=== PATIENT | male | born 1990 | race Caucasian/White ===

== ENCOUNTER 2020-01-14 18:49 | Emergency (ER) | payer MEDICARE, MEDICAID ==
[~2020-01-14] VITALS: Ht 185.4 cm; Wt 113.6 kg
[2020-01-14] MEDS ORDERED: BUSP5TAB20 PO (18:53)
[2020-01-14] MEDS ORDERED: MIRT-89 PO (18:53)
[2020-01-14 22:11] VITALS: BP 133/79
[2020-01-14 22:11] LABS: COVID AG,FIA SOURCE NASAL SWAB
== END 2020-01-14 22:12 | disposition home or self-care (01) ==
LOC: EMS 18:49
DX: R05 Cough (principal); F17.210 Nicotine dependence, cigarettes, uncomplicated; Z71.6 Tobacco abuse counseling; Z20.828 Contact with and (suspected) exposure to other viral communicable diseases
CPT/HCPCS: 71046; 87426; 99284; 99406; C9803

== ENCOUNTER 2020-05-04 21:28 | Inpatient (IN) | payer MEDICARE, MEDICAID ==
[~2020-05-04] VITALS: Ht 185.4 cm; Wt 107.7 kg
[~2020-05-04 21:28] MED LIST: BUSP5TAB20 PO; MIRT-89 PO
[2020-05-04] MEDS ORDERED: OLANZapine 5 MG RAPDIS TABLET PO PRN (23:00)
[2020-05-04] MEDS ORDERED: ZOLPIDEM TARTRATE 10 MG TABLET PO PRN (23:00)
[2020-05-05] VITALS: BP 141/97
[2020-05-05] MEDS ORDERED: INFLUENZA VIRUS VACCINE QVS 2020-21 (6MO+)/PF 60 MCG/0.5 ML SYRINGE IM ONE (01:00)
[2020-05-05 08:03] LABS: HEMOGLOBIN A1C 4.9 % (3.8-5.6)
[2020-05-05 08:05] VITALS: BP 125/71
[2020-05-05 08:12] LABS: BASOPHILS % (AUTO) 0.7 % (0.0-2.0); EOSINOPHILS % (AUTO) 3.6 % (1.0-6.0); HEMATOCRIT 41.8 % (41-53); HEMOGLOBIN 14.4 g/dL (13.5-17.5); LYMPHOCYTES # (AUTO) 1.9 K/uL (1.0-4.8); LYMPHOCYTES % (AUTO) 21.9 % (22.0-44.0); MEAN CORPUSCULAR HEMOGLOBIN 30.6 pg (26.0-34.0); MEAN CORPUSCULAR HGB CONC 34.4 G/dL (31.0-37.0); MEAN CORPUSCULAR VOLUME 89 fL (80-100); MONOCYTES # (AUTO) 0.7 K/uL (0.1-1.0); NEUTROPHILS # (AUTO) 5.8 K/uL (1.8-7.7); NEUTROPHILS % (AUTO) 65.8 % (40.0-70.0); PLATELET COUNT (AUTO) 243 K/uL (150-450); RED CELL DISTRIBUTION WIDTH 13.3 % (11.5-14.5)
[2020-05-05 08:16] LABS: ALANINE AMINOTRANSFERASE 48 U/L (12-78); ALBUMIN 3.7 g/dL (3.4-5.0); ALKALINE PHOSPHATASE 95 U/L (46-116); ANION GAP 12 mmol/L (8-16); ASPARTATE AMINOTRANSFERASE 97 U/L (15-37); BILIRUBIN,TOTAL 0.5 mg/dL (0.1-1.0); CALCIUM, TOTAL 8.7 mg/dL (8.8-10.5); CARBON DIOXIDE 25 mmol/L (22-29); CHLORIDE 102 mmol/L (98-107); CHOL/HDL RATIO 2.6 (4.2-7.3); CHOLESTEROL 116 mg/dL (131-200); CREATININE 0.98 mg/dL (0.60-1.30); FREE T4 (FREE THYROXINE) 1.54 ng/dL (0.76-1.46); GLOMERULAR FILTR. RATE CALC > 60 mL/min (>60); GLUCOSE,RANDOM 100 mg/dL (70-110); HDL CHOLESTEROL 44 mg/dL (40-60); LDL CHOL (CALC.) 57 mg/dL (0-130); POTASSIUM 3.4 mmol/L (3.5-5.1); SODIUM SERUM 139 mmol/L (136-145); THYROID STIMULATING HORMONE 3.31 uIU/mL (0.36-3.74); TOTAL PROTEIN, SERUM 7.5 g/dL (6.4-8.2); TRIGLYCERIDES 77 mg/dL (15-150); UREA NITROGEN, BLOOD 10 mg/dL (7-18)
[2020-05-05] MEDS ORDERED: PROMETHAZINE HCL 25 MG TABLET PO PRN (11:45)
[2020-05-05] MEDS ORDERED: LOPERAMIDE HCL 2 MG CAPSULE PO PRN (11:45)
[2020-05-05] MEDS ORDERED: MAG HYDROX/AL HYDROX/SIMETH ES 30 ML SUSPENSION UDCUP PO PRN (11:45)
[2020-05-05] MEDS ORDERED: MAGNESIUM HYDROXIDE SUSPENSION 30 ML UDCUP PO PRN (11:45)
[2020-05-05] MEDS ORDERED: GuaiFENesin/D-METHORPHAN [SUGAR-FREE] 200-20MG/10 ML SYRUP UDCUP PO PRN (11:45)
[2020-05-05] MEDS ORDERED: TUBERCULIN, PURIFIED PROTEIN DERIVATIVE 5 TU/0.1 ML SYRINGE ID ONE (11:45)
[2020-05-05] MEDS ORDERED: HydrOXYzine PAMOATE 50 MG CAPSULE PO PRN (11:45)
[2020-05-05] MEDS ORDERED: ACETAMINOPHEN 325 MG TABLET PO PRN (11:45)
[2020-05-05] MEDS ORDERED: RisperiDONE 1 MG TABLET PO PRN (14:45)
[2020-05-05 16:04] VITALS: BP 135/84
[2020-05-05] MEDS: THIAMINE 100 MG TABLET PO SCH (16:26)
[2020-05-05] MEDS: MELATONIN 5 MG TABLET PO SCH (20:29)
[2020-05-05] MEDS: BusPIRone HCL 5 MG TABLET PO SCH (20:29)
[2020-05-05] MEDS: MIRTAZAPINE 15 MG TABLET PO SCH (20:29)
[2020-05-05] MEDS ORDERED: RisperiDONE 3 MG TABLET PO SCH (21:00)
[2020-05-06 04:42] VITALS: BP 129/77
[2020-05-06 08:14] VITALS: BP 130/80
[2020-05-06] MEDS: BuPROPion HCL XL 150 MG ER TABLET PO SCH (08:56)
[2020-05-06] MEDS: OMEGA-3/DHA/EPA/FISH OIL 1,000 MG CAPSULE PO SCH (08:56)
[2020-05-06] MEDS: MULTIVITAMINS WITH MINERALS, THERAPEUTIC TABLET PO SCH (08:56)
[2020-05-06] MEDS: THIAMINE 100 MG TABLET PO SCH ×2 (08:56→16:14)
[2020-05-06] MEDS: FOLIC ACID 1 MG TABLET PO SCH (08:56)
[2020-05-06] MEDS: BusPIRone HCL 5 MG TABLET PO SCH ×2 (08:56→20:37)
[2020-05-06] MEDS: NALTREXONE HCL 50 MG TABLET PO SCH (08:57)
[2020-05-06 16:03] VITALS: BP 122/71
[2020-05-06] MEDS: RisperiDONE 3 MG TABLET PO SCH (20:37)
[2020-05-06] MEDS: MELATONIN 5 MG TABLET PO SCH (20:37)
[2020-05-06] MEDS: MIRTAZAPINE 15 MG TABLET PO SCH (20:37)
[2020-05-07 00:26] VITALS: BP 110/62
[2020-05-07 08:15] VITALS: BP 119/70
[2020-05-07] MEDS: FOLIC ACID 1 MG TABLET PO SCH (08:18)
[2020-05-07] MEDS: MULTIVITAMINS WITH MINERALS, THERAPEUTIC TABLET PO SCH (08:18)
[2020-05-07] MEDS: BuPROPion HCL XL 150 MG ER TABLET PO SCH (08:18)
[2020-05-07] MEDS: OMEGA-3/DHA/EPA/FISH OIL 1,000 MG CAPSULE PO SCH (08:18)
[2020-05-07] MEDS: THIAMINE 100 MG TABLET PO SCH ×2 (08:18→16:27)
[2020-05-07] MEDS: NALTREXONE HCL 50 MG TABLET PO SCH (08:19)
[2020-05-07 08:55] LABS: CHOL/HDL RATIO 3.2 (4.2-7.3); FREE T4 (FREE THYROXINE) 1.14 ng/dL (0.76-1.46); THYROID STIMULATING HORMONE 1.37 uIU/mL (0.36-3.74)
[2020-05-07] MEDS: BusPIRone HCL 5 MG TABLET PO SCH ×2 (09:02→20:40)
[2020-05-07 16:02] VITALS: BP 118/72
[2020-05-07] MEDS: MELATONIN 5 MG TABLET PO SCH (20:40)
[2020-05-07] MEDS: RisperiDONE 3 MG TABLET PO SCH (20:41)
[2020-05-07] MEDS: MIRTAZAPINE 15 MG TABLET PO SCH (20:41)
[2020-05-08 00:03] VITALS: BP 107/62
[2020-05-08 08:12] VITALS: BP 111/60
[2020-05-08] MEDS: NALTREXONE HCL 50 MG TABLET PO SCH (08:28)
[2020-05-08] MEDS: BuPROPion HCL XL 150 MG ER TABLET PO SCH (08:28)
[2020-05-08] MEDS: OMEGA-3/DHA/EPA/FISH OIL 1,000 MG CAPSULE PO SCH (08:28)
[2020-05-08] MEDS: BusPIRone HCL 5 MG TABLET PO SCH ×2 (08:28→20:40)
[2020-05-08] MEDS: FOLIC ACID 1 MG TABLET PO SCH (08:28)
[2020-05-08] MEDS: THIAMINE 100 MG TABLET PO SCH ×2 (08:28→16:36)
[2020-05-08] MEDS: MULTIVITAMINS WITH MINERALS, THERAPEUTIC TABLET PO SCH (08:28)
[2020-05-08 16:03] VITALS: BP 107/61
[2020-05-08] MEDS: RisperiDONE 3 MG TABLET PO SCH (20:40)
[2020-05-08] MEDS: MIRTAZAPINE 15 MG TABLET PO SCH (20:40)
[2020-05-08] MEDS: MELATONIN 5 MG TABLET PO SCH (20:40)
[2020-05-09 06:04] VITALS: BP 110/68
[2020-05-09 08:05] LABS: COVID AG,FIA SOURCE NASOPHARYNGEAL
[2020-05-09 08:13] VITALS: BP 132/78
[2020-05-09] MEDS: THIAMINE 100 MG TABLET PO SCH ×2 (08:48→16:29)
[2020-05-09] MEDS: MULTIVITAMINS WITH MINERALS, THERAPEUTIC TABLET PO SCH (08:48)
[2020-05-09] MEDS: NALTREXONE HCL 50 MG TABLET PO SCH (08:48)
[2020-05-09] MEDS: BusPIRone HCL 5 MG TABLET PO SCH ×2 (08:48→20:30)
[2020-05-09] MEDS: OMEGA-3/DHA/EPA/FISH OIL 1,000 MG CAPSULE PO SCH (08:48)
[2020-05-09] MEDS: FOLIC ACID 1 MG TABLET PO SCH (08:49)
[2020-05-09] MEDS: BuPROPion HCL XL 150 MG ER TABLET PO SCH (08:49)
[2020-05-09 16:09] VITALS: BP 106/61
[2020-05-09] MEDS: MIRTAZAPINE 15 MG TABLET PO SCH (20:30)
[2020-05-09] MEDS: RisperiDONE 3 MG TABLET PO SCH (20:30)
[2020-05-09] MEDS: MELATONIN 5 MG TABLET PO SCH (20:31)
[2020-05-10 00:04] VITALS: BP 124/70
[2020-05-10 08:18] VITALS: BP 117/69
[2020-05-10] MEDS: MULTIVITAMINS WITH MINERALS, THERAPEUTIC TABLET PO SCH (08:20)
[2020-05-10] MEDS: BusPIRone HCL 5 MG TABLET PO SCH ×2 (08:20→20:12)
[2020-05-10] MEDS: BuPROPion HCL XL 150 MG ER TABLET PO SCH (08:20)
[2020-05-10] MEDS: NALTREXONE HCL 50 MG TABLET PO SCH (08:20)
[2020-05-10] MEDS: FOLIC ACID 1 MG TABLET PO SCH (08:20)
[2020-05-10] MEDS: OMEGA-3/DHA/EPA/FISH OIL 1,000 MG CAPSULE PO SCH (08:20)
[2020-05-10] MEDS: THIAMINE 100 MG TABLET PO SCH ×2 (08:20→16:45)
[2020-05-10 16:03] VITALS: BP 135/84
[2020-05-10] MEDS: MELATONIN 5 MG TABLET PO SCH (20:12)
[2020-05-10] MEDS: MIRTAZAPINE 15 MG TABLET PO SCH (20:12)
[2020-05-10] MEDS: RisperiDONE 3 MG TABLET PO SCH (20:12)
[2020-05-11 00:04] VITALS: BP 130/89
[2020-05-11 08:02] VITALS: BP 136/84
[2020-05-11] MEDS: FOLIC ACID 1 MG TABLET PO SCH (10:19)
[2020-05-11] MEDS: OMEGA-3/DHA/EPA/FISH OIL 1,000 MG CAPSULE PO SCH (10:19)
[2020-05-11] MEDS: THIAMINE 100 MG TABLET PO SCH ×2 (10:20→16:59)
[2020-05-11] MEDS: BusPIRone HCL 5 MG TABLET PO SCH ×2 (10:20→20:31)
[2020-05-11] MEDS: MULTIVITAMINS WITH MINERALS, THERAPEUTIC TABLET PO SCH (10:20)
[2020-05-11] MEDS: BuPROPion HCL XL 150 MG ER TABLET PO SCH (10:20)
[2020-05-11] MEDS: NALTREXONE HCL 50 MG TABLET PO SCH (11:02)
[2020-05-11 16:02] VITALS: BP 144/87
[2020-05-11] MEDS: MELATONIN 5 MG TABLET PO SCH (20:31)
[2020-05-11] MEDS: MIRTAZAPINE 15 MG TABLET PO SCH (20:31)
[2020-05-11] MEDS: RisperiDONE 3 MG TABLET PO SCH (20:31)
[2020-05-12 04:00] VITALS: BP 108/62
[2020-05-12 08:13] VITALS: BP 111/68
[2020-05-12] MEDS: MULTIVITAMINS WITH MINERALS, THERAPEUTIC TABLET PO SCH (08:38)
[2020-05-12] MEDS: BusPIRone HCL 5 MG TABLET PO SCH ×2 (08:38→20:15)
[2020-05-12] MEDS: FOLIC ACID 1 MG TABLET PO SCH (08:38)
[2020-05-12] MEDS: OMEGA-3/DHA/EPA/FISH OIL 1,000 MG CAPSULE PO SCH (08:38)
[2020-05-12] MEDS: BuPROPion HCL XL 150 MG ER TABLET PO SCH (08:38)
[2020-05-12] MEDS: THIAMINE 100 MG TABLET PO SCH ×2 (08:38→16:33)
[2020-05-12] MEDS: NALTREXONE HCL 50 MG TABLET PO SCH (08:38)
[2020-05-12 16:22] VITALS: BP 149/90
[2020-05-12] MEDS: MIRTAZAPINE 15 MG TABLET PO SCH (20:15)
[2020-05-12] MEDS: RisperiDONE 3 MG TABLET PO SCH (20:15)
[2020-05-12] MEDS: MELATONIN 5 MG TABLET PO SCH (20:15)
[2020-05-13 01:24] VITALS: BP 126/78
[2020-05-13 08:05] VITALS: BP 121/82
[2020-05-13] MEDS: MULTIVITAMINS WITH MINERALS, THERAPEUTIC TABLET PO SCH (08:10)
[2020-05-13] MEDS: FOLIC ACID 1 MG TABLET PO SCH (08:10)
[2020-05-13] MEDS: THIAMINE 100 MG TABLET PO SCH ×2 (08:10→16:23)
[2020-05-13] MEDS: NALTREXONE HCL 50 MG TABLET PO SCH (08:10)
[2020-05-13] MEDS: OMEGA-3/DHA/EPA/FISH OIL 1,000 MG CAPSULE PO SCH (08:10)
[2020-05-13] MEDS: BuPROPion HCL XL 150 MG ER TABLET PO SCH (08:11)
[2020-05-13] MEDS: BusPIRone HCL 5 MG TABLET PO SCH (09:01)
[2020-05-13] MEDS: LORazepam 2 MG TABLET PO PRN ×2 (11:36→16:23)
[2020-05-13] MEDS ORDERED: NICOTINE 21 MG/24 HOUR PATCH TD PRN (13:45)
[2020-05-13] MEDS ORDERED: RISP3TAB44 PO (15:54)
[2020-05-13] MEDS ORDERED: NALT50TA PO (15:54)
[2020-05-13] MEDS ORDERED: MIRT-89 PO (15:54)
[2020-05-13] MEDS ORDERED: BUSP5TAB20 PO (15:54)
[2020-05-13] MEDS ORDERED: MELA5TAB3 PO (15:54)
[2020-05-13] MEDS ORDERED: BUPR-49 PO (15:54)
[2020-05-13] MEDS ORDERED: OMEG-135 PO (15:54)
[2020-05-13 15:59] VITALS: BP 120/80
[2020-05-13 16:04] VITALS: BP 120/80
[2020-05-14 08:35] LABS: APPEARANCE,URINE CLEAR (CLEAR); BILIRUBIN,URINE NEGATIVE (NEGATIVE); GLUCOSE, URINE (UA) NEGATIVE (NEGATIVE); KETONES,URINE NEGATIVE (NEGATIVE); LEUKOCYTE ESTERASE ,URINE NEGATIVE (NEGATIVE); NITRATE,URINE NEGATIVE (NEGATIVE); OCCULT BLOOD,URINE NEGATIVE (NEGATIVE); PROTEIN,URINE NEGATIVE (NEGATIVE); UROBILINOGEN,URINE 0.2 mg/dL (<=1.0)
[2020-05-14 08:45] LABS: AMPHET/METH SCREEN,URINE NEGATIVE (NEGATIVE); BARBITURATE SCREEN, URINE NEGATIVE (NEGATIVE); BENZODIAZEPINES SCREEN,URINE NEGATIVE (NEGATIVE); CANNABINOID SCREEN,URINE NEGATIVE (NEGATIVE); COCAINE SCREEN,URINE NEGATIVE (NEGATIVE); METHADONE SCREEN, URINE NEGATIVE (NEGATIVE); OPIATE SCREEN,URINE NEGATIVE (NEGATIVE)
[2020-05-14 08:46] LABS: PHENCYCLIDINE SCREEN,URINE NEGATIVE (NEGATIVE)
== END 2020-05-13 18:05 | disposition home or self-care (01) | DRG 885 ==
LOC: B2X 22:56
PROVIDERS: ADMIT Psychiatry & Neurology Psychiatry; ATTEND Psychiatry & Neurology Psychiatry
DX: F25.9 Schizoaffective disorder, unspecified (principal); R45.851 Suicidal ideations; E87.6 Hypokalemia; J44.9 Chronic obstructive pulmonary disease, unspecified; Z59.0 Homelessness; Z91.19 Patient's noncompliance with other medical treatment and regimen; F17.200 Nicotine dependence, unspecified, uncomplicated; F12.90 Cannabis use, unspecified, uncomplicated; R79.89 Other specified abnormal findings of blood chemistry; Z20.822 Contact with and (suspected) exposure to COVID-19; Z28.21 Immunization not carried out because of patient refusal
CPT/HCPCS: 80074; 80307; 83036; 84132; 84439; 84443; 86592; 87426; 99285; A9575

== ENCOUNTER 2020-05-26 19:24 | Inpatient (IN) | payer MEDICARE, MEDICAID ==
[~2020-05-26] VITALS: Ht 185.4 cm; Wt 103.7 kg
[~2020-05-26 19:24] MED LIST changes: +BUPR-49 PO; +MELA5TAB3 PO; +NALT50TA PO; +OMEG-135 PO; +RISP3TAB44 PO
[2020-05-26] MEDS ORDERED: GuaiFENesin/D-METHORPHAN [SUGAR-FREE] 200-20MG/10 ML SYRUP UDCUP PO PRN (20:00)
[2020-05-26] MEDS ORDERED: MAGNESIUM HYDROXIDE SUSPENSION 30 ML UDCUP PO PRN (20:00)
[2020-05-26] MEDS ORDERED: ZOLPIDEM TARTRATE 10 MG TABLET PO PRN (20:00)
[2020-05-26] MEDS ORDERED: ACETAMINOPHEN 325 MG TABLET PO PRN (20:00)
[2020-05-26] MEDS ORDERED: PROMETHAZINE HCL 25 MG TABLET PO PRN (20:00)
[2020-05-26] MEDS ORDERED: LOPERAMIDE HCL 2 MG CAPSULE PO PRN (20:00)
[2020-05-26] MEDS ORDERED: MAG HYDROX/AL HYDROX/SIMETH ES 30 ML SUSPENSION UDCUP PO PRN (20:00)
[2020-05-26] MEDS ORDERED: QUEtiapine FUMARATE 100 MG TABLET PO PRN (20:00)
[2020-05-26] MEDS ORDERED: HydrOXYzine PAMOATE 50 MG CAPSULE PO PRN (20:00)
[2020-05-26] MEDS ORDERED: MIRTAZAPINE 15 MG TABLET PO SCH (21:00)
[2020-05-27 01:09] VITALS: BP 124/79
[2020-05-27 08:09] LABS: BASOPHILS % (AUTO) 0.9 % (0.0-2.0); EOSINOPHILS % (AUTO) 1.9 % (1.0-6.0); HEMOGLOBIN 14.9 g/dL (13.5-17.5); LYMPHOCYTES # (AUTO) 2.3 K/uL (1.0-4.8); LYMPHOCYTES % (AUTO) 37.1 % (22.0-44.0); MEAN CORPUSCULAR HEMOGLOBIN 30.5 pg (26.0-34.0); MEAN CORPUSCULAR HGB CONC 33.8 G/dL (31.0-37.0); MEAN CORPUSCULAR VOLUME 90 fL (80-100); MONOCYTES # (AUTO) 0.5 K/uL (0.1-1.0); MONOCYTES % (AUTO) 8.9 % (2.0-9.0); NEUTROPHILS # (AUTO) 3.1 K/uL (1.8-7.7); NEUTROPHILS % (AUTO) 51.2 % (40.0-70.0); PLATELET COUNT (AUTO) 218 K/uL (150-450); RED BLOOD CELL COUNT(AUTO) 4.88 MIL/uL (4.50-5.90); RED CELL DISTRIBUTION WIDTH 13.3 % (11.5-14.5)
[2020-05-27] MEDS: OMEGA-3/DHA/EPA/FISH OIL 1,000 MG CAPSULE PO SCH (08:09)
[2020-05-27] MEDS: MULTIVITAMINS WITH MINERALS, THERAPEUTIC TABLET PO SCH (08:09)
[2020-05-27] MEDS: FOLIC ACID 1 MG TABLET PO SCH (08:09)
[2020-05-27] MEDS: THIAMINE 100 MG TABLET PO SCH ×2 (08:09→17:03)
[2020-05-27] MEDS: NALTREXONE HCL 50 MG TABLET PO SCH (08:10)
[2020-05-27 08:19] VITALS: BP 106/66
[2020-05-27 08:30] LABS: ALANINE AMINOTRANSFERASE 12 U/L (12-78); ALBUMIN 3.2 g/dL (3.4-5.0); ALKALINE PHOSPHATASE 90 U/L (46-116); ANION GAP 12 mmol/L (8-16); ASPARTATE AMINOTRANSFERASE 9 U/L (15-37); BILIRUBIN,TOTAL 0.6 mg/dL (0.1-1.0); CALCIUM, TOTAL 8.1 mg/dL (8.8-10.5); CARBON DIOXIDE 25 mmol/L (22-29); CHLORIDE 104 mmol/L (98-107); CREATININE 0.98 mg/dL (0.60-1.30); GLOMERULAR FILTR. RATE CALC > 60 mL/min (>60); GLUCOSE,RANDOM 100 mg/dL (70-110); POTASSIUM 3.4 mmol/L (3.5-5.1); SODIUM SERUM 141 mmol/L (136-145); TOTAL PROTEIN, SERUM 6.8 g/dL (6.4-8.2); UREA NITROGEN, BLOOD 11 mg/dL (7-18)
[2020-05-27] MEDS: NICOTINE 21 MG/24 HOUR PATCH TD SCH (14:08)
[2020-05-27 16:08] VITALS: BP 132/71
[2020-05-27] MEDS ORDERED: RisperiDONE 1 MG TABLET PO PRN (16:30)
[2020-05-27] MEDS: MELATONIN 5 MG TABLET PO SCH (20:33)
[2020-05-27] MEDS ORDERED: RisperiDONE 3 MG TABLET PO SCH (21:00)
[2020-05-28] VITALS: BP 119/69
[2020-05-28 08:05] VITALS: BP 106/69
[2020-05-28] MEDS: FOLIC ACID 1 MG TABLET PO SCH (08:12)
[2020-05-28] MEDS: NICOTINE 21 MG/24 HOUR PATCH TD SCH (08:12)
[2020-05-28] MEDS: OMEGA-3/DHA/EPA/FISH OIL 1,000 MG CAPSULE PO SCH (08:12)
[2020-05-28] MEDS: MULTIVITAMINS WITH MINERALS, THERAPEUTIC TABLET PO SCH (08:12)
[2020-05-28] MEDS: THIAMINE 100 MG TABLET PO SCH ×2 (08:13→16:31)
[2020-05-28] MEDS: NALTREXONE HCL 50 MG TABLET PO SCH (08:13)
[2020-05-28] MEDS ORDERED: NALT50TA PO (15:15)
[2020-05-28] MEDS ORDERED: MELA5TAB3 PO (15:15)
[2020-05-28] MEDS ORDERED: RISP3TAB44 PO (15:15)
[2020-05-28] MEDS ORDERED: MIRT-89 PO (15:15)
[2020-05-28] MEDS ORDERED: OMEG-135 PO (15:15)
[2020-05-28 16:08] VITALS: BP 129/72
[2020-05-28] MEDS: MELATONIN 5 MG TABLET PO SCH (20:05)
[2020-05-28] MEDS ORDERED: MIRTAZAPINE 30 MG TABLET PO SCH (21:00)
[2020-05-28] MEDS ORDERED: RisperiDONE 3 MG TABLET PO SCH (21:00)
[2020-05-29 00:21] VITALS: BP 110/62
[2020-05-29] MEDS: THIAMINE 100 MG TABLET PO SCH (08:24)
[2020-05-29] MEDS: NALTREXONE HCL 50 MG TABLET PO SCH (08:24)
[2020-05-29] MEDS: FOLIC ACID 1 MG TABLET PO SCH (08:24)
[2020-05-29] MEDS: MULTIVITAMINS WITH MINERALS, THERAPEUTIC TABLET PO SCH (08:24)
[2020-05-29] MEDS: OMEGA-3/DHA/EPA/FISH OIL 1,000 MG CAPSULE PO SCH (08:24)
[2020-05-29] MEDS: NICOTINE 21 MG/24 HOUR PATCH TD SCH (08:25)
[2020-05-29 08:31] VITALS: BP 131/73
== END 2020-05-29 15:45 | disposition home or self-care (01) | DRG 885 ==
LOC: B2X 22:30
PROVIDERS: ADMIT Psychiatry & Neurology Psychiatry; ATTEND Psychiatry & Neurology Psychiatry
DX: F25.9 Schizoaffective disorder, unspecified (principal); F17.200 Nicotine dependence, unspecified, uncomplicated; J44.9 Chronic obstructive pulmonary disease, unspecified; E87.6 Hypokalemia; F12.90 Cannabis use, unspecified, uncomplicated; Z55.9 Problems related to education and literacy, unspecified; Z59.9 Problem related to housing and economic circumstances, unspecified; Z65.3 Problems related to other legal circumstances; Z59.0 Homelessness
CPT/HCPCS: 84132; 86592; 87081; A9575